=== PATIENT | female | born 1955 | race Caucasian/White ===

== ENCOUNTER 2018-12-16 09:10 | Outpatient (CLI) | payer OTHER ==
--- NOTE | 2018-12-16 09:36 | RAD ---
XR Chest Pa Lat @ [facility] HISTORY: Dyspnea COMPARISON: 08/14/2016 study. FINDINGS: Heart size is borderline. The lungs are clear of any infiltrative process. Scoliosis and le ft posterior chest wall deformity are again demonstrated. IMPRESSION: Stable exam.
== END 2018-12-16 09:11 | disposition home or self-care (01) ==
LOC: RAD 09:10
PROVIDERS: ATTEND Internal Medicine Critical Care Medicine
DX: R06.00 Dyspnea, unspecified (principal)
CPT/HCPCS: 71046

== ENCOUNTER 2020-12-22 13:15 | Outpatient (CLI) | payer OTHER | END 2020-12-22 13:16 | disposition home or self-care (01) | LOC: BICMAMMO 13:15 | PROVIDERS: ATTEND Registered Nurse Community Health | DX: Z12.31 Encounter for screening mammogram for malignant neoplasm of breast (principal) | CPT/HCPCS: 77063; 77067 ==

== ENCOUNTER 2022-10-11 11:09 | Outpatient (CLI) | payer MEDICARE | END 2022-10-11 11:10 | disposition home or self-care (01) | LOC: BICMAMMO 11:09 | PROVIDERS: ATTEND Registered Nurse Community Health | DX: Z12.31 Encounter for screening mammogram for malignant neoplasm of breast (principal); M79.672 Pain in left foot; M19.072 Primary osteoarthritis, left ankle and foot | CPT/HCPCS: 77063; 77067 ==